=== PATIENT | female | born 1960 | race Caucasian/White ===

== ENCOUNTER 2017-04-03 09:09 | Emergency (ER) | payer BC ==
[2017-04-03 11:33] VITALS: BP 129/84
--- NOTE | 2017-04-03 11:56 | UC ---
Eye Complaint HPI - HPI Summary HPI Summary: This is a 56 yo female with chronic sinus complaints. She presents with c/o R sided frontal and maxillary tenderness along with R eyelid swelling and tenderness with mild drainage. No blurred vision or light sensitivity. No n/v or fever. - History of Current Complaint Chief Complaint: UCSkin Stated Complaint: EYE COMPLAINT (BILATERAL) Pain Intensity: 4 - Allergies/Home Medications Allergies/Adverse Reactions: Allergies Allergy/AdvReac Type Severity Reaction Status Date / Time bee venom protein (honey bee) Allergy Swelling Verified 04/03/17 11:13 clindamycin Allergy Swelling Verified 04/03/17 11:15 Of Face,Lips,& Throat ibuprofen Allergy See Comment Verified 04/03/17 11:15 Home Medications: Home Medications Citalopram TAB* [Celexa TAB*] 20 mg PO DAILY 04/03/17 [History Confirmed ] Loratadine 10 mg PO DAILY 04/03/17 [History Confirmed 04/03/17] PMH/Surg Hx/FS Hx/Imm Hx Previously Healthy: Yes - Surgical History Surgical History: Yes Surgery Procedure, Year, and Place: c-sectio, b/l carpal tunnel - Family History Known Family History: Positive: None - Social History Alcohol Use: Rare Substance Use Type: Excessive Caffeine Smoking Status (MU): Heavy Every Day Tobacco Smoker Type: Cigarettes Amount Used/How Often: 1 PPD Length of Time of Smoking/Using Tobacco: 32 Years Have You Smoked in the Last Year: Yes Review of Systems Constitutional: Negative Skin: Negative Eyes: Drainage ENT: Sinus Congestion, Sinus Pain/Tenderness Respiratory: Negative Cardiovascular: Negative Gastrointestinal: Negative Genitourinary: Negative Motor: Negative Neurovascular: Negative Musculoskeletal: Negative Neurological: Negative Psychological: Negative Is Patient Immunocompromised?: No All Other Systems Reviewed And Are Negative: Yes Physical Exam Triage Information Reviewed: Yes Appearance: Well-Appearing Vital Signs: Initial Vital Signs Temp 98.9 F 04/03/17 11:20 Pulse 78 04/03/17 11:20 Resp 18 04/03/17 11:20 BP 129/84 04/03/17 11:20 Pulse Ox 98 04/03/17 11:20 Vital Signs Reviewed: Yes Eyes: Positive: Conjunctiva Clear, Other: - R eyelid slightly edematous. Negative: Discharge ENT: Positive: Pharynx normal, TM dull, Other - nasal turbinate edematous Dental: Positive: Percussion Tenderness @ - R frontal and maxillary sinuses Neck: Positive: Nontender, No Lymphadenopathy Respiratory: Positive: Lungs clear, Normal breath sounds. Negative: Crackles, Rhonchi, Stridor, Wheezing Cardiovascular: Positive: RRR, No Murmur Abdominal Exam: Normal Musculoskeletal Exam: Normal Neurological Exam: Normal Psychological Exam: Normal Skin Exam: Normal Eye Complaint Course/Dx - Course Course Of Treatment: This is a 56 yo female with chronic sinus complaints who presents with R sided facial pain and eyelid edema. Will treat for sinusitis. Conjunctiva appears clear, no evidence of associated conjunctivitis. - Differential Dx/Diagnosis Differential Diagnosis/HQI/PQRI: Conjunctivitis, Foreign Body, Orbital Cellulitis Provider Diagnoses: 1. Acute Sinusitis Discharge - Discharge Plan Condition: Stable Disposition: HOME Prescriptions: Amoxicillin/Clavulanate TAB* [Augmentin TAB 875*] 875 mg PO BID #20 tab Patient Education Materials: Sinusitis (ED) Referrals: MAE Tesfaye [Primary Care Provider] - Additional Instructions: Instructions: 1. Please continue all home medications 2. Take antibiotic as directed 3. Follow up with PCP if symptoms to not improve
== END 2017-04-03 11:56 | disposition home or self-care (01) ==
LOC: UCCORT 09:09
DX: J01.90 Acute sinusitis, unspecified (principal); F17.210 Nicotine dependence, cigarettes, uncomplicated
CPT/HCPCS: 99212; G0463

== ENCOUNTER 2017-09-10 10:24 | Emergency (ER) | payer BC ==
[2017-09-10 11:15] VITALS: BP 121/87
--- NOTE | 2017-09-10 11:35 | RAD ---
INDICATION: Cough and right-sided chest pain COMPARISON: None TECHNIQUE: PA and lateral views of the chest were obtained. FINDINGS: The heart and mediastinum are normal in size and contour. The lungs are grossly clear. There is no evidence of large pleural effusion. Visualized bones are normal for the patient's age. There is no radiographic evidence of free air beneath the diaphragm IMPRESSION: No radiographic evidence of acute cardiopulmonary disease.
--- NOTE | 2017-09-10 11:37 | ED ---
HPI Chest Pain - HPI Summary HPI Summary: 56 yr old female with the complaint of chest pain. Onset of pain about two weeks ago when she was going to [place] in her car with family. She felt a sudden onset of pain across the chest. That night she had coughing spells. The pain is now an ache in the mid chest and the right axilla and it is worse with breathing, coughing. She is a smoker. - History of Current Complaint Chief Complaint: UCChestPain Time Seen by Provider: 09/10/17 11:03 Hx Last Menstrual Period: 2007 Pain Intensity: 4 - Allergy/Home Medications Allergies/Adverse Reactions: Allergies Allergy/AdvReac Type Severity Reaction Status Date / Time clindamycin Allergy Swelling Verified 04/03/17 11:15 Of Face,Lips,& Throat ibuprofen Allergy See Comment Verified 04/03/17 11:15 bee sting Allergy Swelling,difficulty Uncoded 09/10/17 11:19 breathing seafood Allergy Vomiting,di Uncoded 09/10/17 11:19 arrhea PMH/Surg Hx/FS Hx/Imm Hx Endocrine/Hematology History: Denies: Hx Diabetes, Hx Thyroid Disease Cardiovascular History: Denies: Hx Congestive Heart Failure, Hx Hypertension, Hx Pacemaker/ICD, Other Cardiovascular Problems/Disorders Respiratory History: Denies: Hx Asthma, Hx Chronic Obstructive Pulmonary Disease (COPD), Other Respiratory Problems/Disorders GI History: Reports: Hx Gastroesophageal Reflux Disease, Hx Hiatal Hernia Denies: Hx Ulcer Musculoskeletal History: Reports: Hx Bursitis - RIGHT ELBOW, Hx Tendonitis - RIGHT ELBOW Sensory History: Reports: Hx Contacts or Glasses - READING GLASSES Denies: Hx Hearing Aid Opthamlomology History: Reports: Hx Contacts or Glasses - READING GLASSES Psychiatric History: Reports: Hx Anxiety - CONTROL WITH MEDS - Surgical History Surgery Procedure, Year, and Place: x 2, b/l carpal tunnel Hx Anesthesia Reactions: Yes - VOMITING AFTER EGD AND COLONOSCOPY IN 2007 Infectious Disease History: No Infectious Disease History: Denies: Hx Hepatitis, Hx Human Immunodeficiency Virus (HIV), Traveled Outside the [place] in Last 30 Days - Family History Known Family History: Positive: None - Social History Alcohol Use: Rare Substance Use Type: Reports: Excessive Caffeine Substance Use Comment - Amount & Last Used: 1 pot of coffee per day Hx Tobacco Use: No Smoking Status (MU): Heavy Every Day Tobacco Smoker Type: Cigarettes Amount Used/How Often: 1 PPD Length of Time of Smoking/Using Tobacco: 32 Years Have You Smoked in the Last Year: Yes Review of Systems Constitutional: Negative Positive: Chest Pain Positive: Shortness Of Breath, Cough All Other Systems Reviewed And Are Negative: Yes Physical Exam Triage Information Reviewed: Yes Vital Signs On Initial Exam: Initial Vitals Temp Pulse Resp BP Pulse Ox 98.6 F 84 18 121/87 97 09/10/17 10:46 09/10/17 10:46 09/10/17 10:46 09/10/17 10:46 09/10/17 10:46 Vital Signs Reviewed: Yes Appearance: Positive: Well-Appearing, No Pain Distress Skin: Positive: Warm, Skin Color Reflects Adequate Perfusion Head/Face: Positive: Normal Head/Face Inspection Eyes: Positive: EOMI ENT: Positive: Normal ENT inspection Neck: Positive: Nontender Respiratory/Lung Sounds: Positive: Clear to Auscultation, Breath Sounds Present Cardiovascular: Positive: RRR. Negative: Murmur Abdomen Description: Positive: Nontender Musculoskeletal: Positive: Strength/ROM Intact. Negative: Edema Left, Edema Right Neurological: Positive: Sensory/Motor Intact, Alert, Oriented to Person Place, Time, CN Intact II-III Psychiatric: Positive: Normal - Cecilio Coma Scale Best Eye Response: 4 - Spontaneous Best Motor Response: 6 - Obeys Commands Best Verbal Response: 5 - Oriented Coma Scale Total: 15 Diagnostics - Vital Signs Vital Signs Temp Pulse Resp BP Pulse Ox 09/10/17 10:46 98.6 F 84 18 121/87 97 - Laboratory Lab Statement: Any lab studies that have been ordered have been reviewed, and results considered in the medical decision making process. - Radiology chest pa/lat Xray Interpretation: No Acute Changes Radiology Interpretation Completed By: Radiologist - EKG 09/10/17 Cardiac Rate: NL EKG Rhythm: Sinus Rhythm ST Segment: Normal Ectopy: None EKG Interpretation: No STEMI Chest Pain Course/Dx - Course Course Of Treatment: 56 yr old female with CP. TWO EKGS were done. The first one not done properly as the leads were reversed and this needs to be discarded from the system. The second EKG done at 11:01 am is with leads in proper place and that tracing is normal. The patient signed out AMA with knowledge of possibliltiy of PE, and refused ambulance transfer to the ER. - Diagnoses Provider Diagnoses: Chest pain Discharge - Sign-Out/Discharge Documenting (check all that apply): Patient Departure - Discharge Plan Condition: Good Disposition: AGAINST MEDICAL ADVICE Referrals: Chana Gómez MD [Primary Care Provider] - - Billing Disposition and Condition Condition: GOOD Disposition: Against Medical Advice
== END 2017-09-10 12:05 | disposition left against medical advice (07) ==
LOC: UCCORT 10:24
DX: R07.9 Chest pain, unspecified (principal); F17.210 Nicotine dependence, cigarettes, uncomplicated
CPT/HCPCS: 71046; 93005; 99211; G0463

== ENCOUNTER 2018-07-07 09:08 | Emergency (ER) | payer BC ==
[2018-07-07 10:19] VITALS: BP 120/77
--- NOTE | 2018-07-07 10:33 | UC ---
Respiratory Complaint HPI - HPI Summary HPI Summary: sinus pain and pressure x 10 days , nasal congestion , pnd, yellow / green nasal discharge, right eye pain no fever, no chills, no body aches pulled her right lower back this morning as she was coughing - History of Current Complaint Chief Complaint: UCRespiratory Stated Complaint: SINUS CONCERN,COUGH Time Seen by Provider: 07/07/18 10:20 Hx Obtained From: Patient Hx Last Menstrual Period: 2007 ?: No Onset/Duration: Gradual Onset, Lasting Days - 10, Still Present Severity Initially: Moderate Severity Currently: Moderate Pain Intensity: 3 Character: Cough: Nonproductive Aggravating Factors: Exertion, Deep Breaths Alleviating Factors: Nothing Associated Signs And Symptoms: Positive: URI, Nasal Congestion, Sinus Discomfort. Negative: Dyspnea, Fever, Chills, Pleuritic Chest Pain, Wheezing, Hemoptysis, Dizziness, Calf Pain, Calf Swelling, Hoarseness - Allergies/Home Medications Allergies/Adverse Reactions: Allergies Allergy/AdvReac Type Severity Reaction Status Date / Time bee venom protein (honey bee) Allergy Difficulty Verified 07/07/18 10:13 Breathing, Swelling clindamycin Allergy Swelling Verified 07/07/18 10:13 Of Face,Lips,& Throat ibuprofen Allergy See Comment Verified 07/07/18 10:13 seafood Allergy Vomiting,di Uncoded 07/07/18 10:13 arrhea Home Medications: Home Medications Fluticasone NASAL SPRAY 50MCG* [Flonase NASAL SPRAY 50MCG*] 2 spray BOTH NARES DAILY 07/07/18 [History Confirmed 07/07/18] PMH/Surg Hx/FS Hx/Imm Hx - Additional Past Medical History Additional PMH: Allergies, Anxiety, Depression, GERD GI/ History: Gastroesophageal Reflux - Surgical History Surgical History: Yes Surgery Procedure, Year, and Place: Left Foot Bunionectomy and Hammer Toe, 2018 , [place]; Bilateral Carpal Tunnel, ~2016, [place]; C-Sections, 1987 1985, [place] - Family History Known Family History: Positive: None Negative: Diabetes - Social History Alcohol Use: Rare Substance Use Type: Marijuana Substance Use Comment - Amount & Last Used: Once Daily Smoking Status (MU): Heavy Every Day Tobacco Smoker Type: Cigarettes Amount Used/How Often: <1 PPD Length of Time of Smoking/Using Tobacco: Since Age 20 Have You Smoked in the Last Year: Yes Household Exposure Type: Cigarettes Review of Systems All Other Systems Reviewed And Are Negative: Yes Constitutional: Positive: Negative Skin: Positive: Negative Eyes: Positive: Negative ENT: Positive: Ear Ache, Nasal Discharge, Sinus Congestion, Sinus Pain/ Tenderness Respiratory: Positive: Negative, Cough Cardiovascular: Positive: Negative Is Patient Immunocompromised?: No Physical Exam Triage Information Reviewed: Yes Appearance: Well-Appearing, No Pain Distress, Well-Nourished Vital Signs: Initial Vital Signs Temp 98 F 07/07/18 10:10 Pulse 82 07/07/18 10:10 Resp 16 07/07/18 10:10 BP 120/77 07/07/18 10:10 Pulse Ox 98 07/07/18 10:10 Vital Signs Reviewed: Yes Eye Exam: Normal Eyes: Positive: Conjunctiva Clear ENT: Positive: Normal ENT inspection, Hearing grossly normal, Pharyngeal erythema, Nasal congestion, Nasal drainage, TMs normal. Negative: TM bulging, TM dull, TM red, Tonsillar swelling, Tonsillar exudate Neck: Positive: Supple, Nontender, No Lymphadenopathy Respiratory: Positive: Chest non-tender, Lungs clear, Normal breath sounds Cardiovascular: Positive: RRR, No Murmur, Pulses Normal Abdominal Exam: Normal Musculoskeletal: Positive: Other: - right lower back : no swelling, no erythema , no tenderness, pain with hip flexion and extension Skin Exam: Normal Respiratory Course/Dx - Differential Dx/Diagnosis Provider Diagnosis: Sinusitis, Strain of fascia of lower back Discharge - Sign-Out/Discharge Documenting (check all that apply): Patient Departure All imaging exams completed and their final reports reviewed: No Studies - Discharge Plan Condition: Stable Disposition: HOME Prescriptions: Amoxicillin/Clavulanate TAB* [Augmentin TAB 875*] 875 mg PO BID #20 tab Cyclobenzaprine TAB* [Flexeril 10 MG TAB*] 10 mg PO BID PRN #20 tab PRN Reason: Pain Patient Education Materials: Sinusitis (ED), Low Back Strain (ED) Referrals: Brigitte Malave [Primary Care Provider] - 7 Days - Billing Disposition and Condition Condition: STABLE Disposition: Home
== END 2018-07-07 10:33 | disposition home or self-care (01) ==
LOC: UCCORT 09:08
DX: J32.9 Chronic sinusitis, unspecified (principal); S39.012A Strain of muscle, fascia and tendon of lower back, initial encounter; X58.XXXA Exposure to other specified factors, initial encounter; Z88.3 Allergy status to other anti-infective agents; Z88.8 Allergy status to other drugs, medicaments and biological substances
CPT/HCPCS: 99212; G0463

== ENCOUNTER 2018-12-04 09:43 | Emergency (ER) | payer BC ==
[2018-12-04 09:55] VITALS: BP 107/76
--- NOTE | 2018-12-04 10:03 | UC ---
Skin Complaint HPI - HPI Summary HPI Summary: 58-year-old female found a tick on her right arm this morning and removed it. She is unsure how long it had been there. She denies any symptoms of illness. - History of Current Complaint Chief Complaint: UCSkin Time Seen by Provider: 12/04/18 10:00 Stated Complaint: TICK BITE Hx Obtained From: Patient Hx Last Menstrual Period: 2007 ?: No Onset/Duration: Gradual Onset Skin Exposure Onset/Duration: Worse Since: - Patient found the tick this morning however she is unsure how long it had been there. Timing: Constant Onset Severity: Mild Current Severity: Mild Pain Intensity: 5 Location: Other - Right upper arm Aggravating Factor(s): Nothing - Allergy/Home Medications Allergies/Adverse Reactions: Allergies Allergy/AdvReac Type Severity Reaction Status Date / Time bee venom protein (honey bee) Allergy Difficulty Verified 12/04/18 09:55 Breathing, Swelling clindamycin Allergy Swelling Verified 12/04/18 09:55 Of Face,Lips,& Throat ibuprofen Allergy See Comment Verified 12/04/18 09:55 seafood Allergy Vomiting,di Uncoded 12/04/18 09:55 arrhea PMH/Surg Hx/FS Hx/Imm Hx Previously Healthy: Yes - Surgical History Surgical History: Yes Surgery Procedure, Year, and Place: Left Foot Bunionectomy and Hammer Toe, 2018 , [place]; Bilateral Carpal Tunnel, ~2016, [place]; C-Sections, 1987 1985, [place] - Family History Known Family History: Positive: None Negative: Diabetes - Social History Alcohol Use: Occasionally Substance Use Type: Marijuana Substance Use Comment - Amount & Last Used: Once Daily Smoking Status (MU): Heavy Every Day Tobacco Smoker Type: Cigarettes Amount Used/How Often: <1 PPD Length of Time of Smoking/Using Tobacco: Since Age 20 Have You Smoked in the Last Year: Yes Household Exposure Type: Cigarettes Review of Systems All Other Systems Reviewed And Are Negative: Yes Skin: Positive: Bruising - small bruise and reddened area right upper arm where the tick had been., Other Is Patient Immunocompromised?: No Physical Exam Triage Information Reviewed: Yes Appearance: Well-Appearing, No Pain Distress, Well-Nourished Vital Signs: Initial Vital Signs Temp 97.6 F 12/04/18 09:50 Pulse 77 12/04/18 09:50 Resp 18 12/04/18 09:50 BP 107/76 12/04/18 09:50 Pulse Ox 99 12/04/18 09:50 Vital Signs Reviewed: Yes Skin: Positive: Other - Very small bruised area measuring approximately 4 mm in diameter right upper arm where the tick had been embedded. There are no residual pieces of the tick present. Course/Dx - Course Course Of Treatment: Patient is comfortable here. I'm going to give her a dose of doxycycline 200 mg , one time dose. She's follow-up with her primary care provider if any worsening symptoms which were reviewed with the patient. - Diagnoses Provider Diagnosis: Tick bite Discharge ED - Sign-Out/Discharge Documenting (check all that apply): Patient Departure All imaging exams completed and their final reports reviewed: No Studies - Discharge Plan Condition: Good Disposition: HOME Prescriptions: DOXYcycline CAP(*) [DOXYcycline 100MG CAP(*)] 200 mg PO DAILY 1 Days #2 cap Patient Education Materials: Tick Bite (ED) Referrals: Brigitte Malave [Primary Care Provider] - Additional Instructions: No dairy products, antacids or multivitamins 2 hours before you take the doxycycline and 2 hours after you take doxycycline however take it with food. Follow-up with your primary care provider if you develop fever, chills, rashes or body aches. - Billing Disposition and Condition Condition: GOOD Disposition: Home
== END 2018-12-04 10:15 | disposition home or self-care (01) ==
LOC: UCEAST 09:43
DX: S40.861A Insect bite (nonvenomous) of right upper arm, initial encounter (principal); F17.210 Nicotine dependence, cigarettes, uncomplicated; Z91.030 Bee allergy status; Z88.1 Allergy status to other antibiotic agents; Z91.013 Allergy to seafood; W57.XXXA Bitten or stung by nonvenomous insect and other nonvenomous arthropods, initial encounter; Y92.9 Unspecified place or not applicable
CPT/HCPCS: 99212; G0463

== ENCOUNTER 2019-04-14 10:35 | Emergency (ER) | payer BC ==
[2019-04-14 12:27] VITALS: BP 141/74
--- NOTE | 2019-04-14 12:35 | UC ---
Skin Complaint HPI - HPI Summary HPI Summary: 58-year-old female who has what she thinks might be bedbug bites on her left arm. She returned from [place] 2 weeks ago where they had stayed in a motel however the red areas did not show up until this morning. She denies any other bites anywhere else and no other family members have bites. She states they are not itchy. - History of Current Complaint Chief Complaint: UCRas Time Seen by Provider: 04/14/19 12:30 Stated Complaint: RED STEPHENS ON ARM Hx Obtained From: Patient Hx Last Menstrual Period: 2007 ?: No Onset/Duration: Sudden Onset Skin Exposure Onset/Duration: Hours Ago Timing: Constant Onset Severity: Mild Current Severity: Mild Pain Intensity: 0 Location: Other Aggravating Factor(s): Nothing Alleviating Factor(s): Nothing Associated Signs & Symptoms: Positive: Negative - Allergy/Home Medications Allergies/Adverse Reactions: Allergies Allergy/AdvReac Type Severity Reaction Status Date / Time bee venom protein (honey bee) Allergy Difficulty Verified 04/14/19 12:21 Breathing, Swelling clindamycin Allergy Swelling Verified 04/14/19 12:21 Of Face,Lips,& Throat ibuprofen Allergy See Comment Verified 04/14/19 12:21 seafood Allergy Vomiting,di Uncoded 04/14/19 12:21 arrhea Home Medications: Home Medications Omeprazole CAP (NF) [Prilosec CAP* 20 MG] 20 mg PO DAILY 05/29/13 [History Confirmed 04/14/19] Citalopram TAB* [Celexa TAB*] 20 mg PO DAILY 04/03/17 [History Confirmed ] Loratadine 10 mg PO DAILY 04/03/17 [History Confirmed 04/14/19] Fluticasone NASAL SPRAY 50MCG* [Flonase NASAL SPRAY 50MCG*] 2 spray BOTH NARES DAILY 07/07/18 [History Confirmed 04/14/19] PMH/Surg Hx/FS Hx/Imm Hx Previously Healthy: Yes - Surgical History Surgical History: Yes Surgery Procedure, Year, and Place: Left Foot Bunionectomy and Hammer Toe, 2018 , [place]; Bilateral Carpal Tunnel, ~2016, [place]; C-Sections, 1986 1985, [place] - Family History Known Family History: Positive: None Negative: Diabetes - Social History Lives: With Family Alcohol Use: Occasionally Substance Use Type: Marijuana Substance Use Comment - Amount & Last Used: Once Daily Smoking Status (MU): Heavy Every Day Tobacco Smoker Type: Cigarettes Amount Used/How Often: <1 PPD Length of Time of Smoking/Using Tobacco: Since Age 20 Have You Smoked in the Last Year: Yes Household Exposure Type: Cigarettes Review of Systems All Other Systems Reviewed And Are Negative: Yes Skin: Positive: Other - Patient has 5 red very small scabs on her left forearm which are not itchy and then 2 small scratches. Is Patient Immunocompromised?: No Physical Exam Triage Information Reviewed: Yes Appearance: Well-Appearing, No Pain Distress, Well-Nourished Vital Signs: Initial Vital Signs Temp 98.5 F 04/14/19 12:22 Pulse 89 04/14/19 12:22 Resp 18 04/14/19 12:22 BP 141/74 04/14/19 12:22 Pulse Ox 98 04/14/19 12:22 Vital Signs Reviewed: Yes Musculoskeletal Exam: Normal Neurological Exam: Normal Psychological Exam: Normal Skin: Positive: Other - Patient has 3 small red dots on her left proximal forearm which appear to be insect bites. She has 2 very small scabbed areas which appeared to possibly be insect bites or scabs and then she has 2 very small, 2 mm in length, scratches distal to that. There is no evidence of secondary skin infection. Course/Dx - Course Course Of Treatment: I advised the patient how to search for bedbugs however I don't feel these are bedbug bites because they're not inflamed like a typical bedbug bite. They appeared to possibly be bug bites and then 2 areas that are scabbed from scratching. She is going to check her mattresses tonight for bedbugs. - Diagnoses Provider Diagnosis: Insect bite Discharge ED - Sign-Out/Discharge Documenting (check all that apply): Patient Departure All imaging exams completed and their final reports reviewed: No Studies - Discharge Plan Condition: Good Disposition: HOME Patient Education Materials: Insect Bite or Sting (ED) Referrals: Brigitte Malave [Primary Care Provider] - Additional Instructions: Watch for any worsening symptoms or infection and follow-up with your primary care provider as needed. - Billing Disposition and Condition Condition: GOOD Disposition: Home
== END 2019-04-14 12:45 | disposition home or self-care (01) ==
LOC: UCEAST 10:35
DX: S50.862A Insect bite (nonvenomous) of left forearm, initial encounter (principal); F17.210 Nicotine dependence, cigarettes, uncomplicated; Z91.030 Bee allergy status; Z91.013 Allergy to seafood; Z88.6 Allergy status to analgesic agent; Z88.1 Allergy status to other antibiotic agents; W57.XXXA Bitten or stung by nonvenomous insect and other nonvenomous arthropods, initial encounter; Y92.9 Unspecified place or not applicable
CPT/HCPCS: 99211; G0463